=== PATIENT | female | born 2000 | race African-American/Black ===

== ENCOUNTER → 2020-03-17 12:51 | Outpatient (CLI) | payer OTHER, BC, SELFPAY ==
[2020-03-17 16:30] LABS: Prolactin 12.8 ng/mL; T4 Free Direct 1.02 ng/dL (0.76-1.46); Thyroid Stim Hormone (TSH) 3.66 uIU/mL (0.358-3.74)
[2020-03-22 07:14] LABS: Testosterone Free 3.7 pg/mL (0.0-4.2)
[2020-03-26 20:37] LABS: 17-Hydroxyprogesterone 159 ng/dL (.)
== END ==
PROVIDERS: Visit Provider Student in an Organized Health Care Education/Training Program
DX: N92.6 Irregular menstruation, unspecified (principal)
CPT/HCPCS: 36415; 82627; 82670; 83498; 84146; 84402; 84439; 84443; 82626